=== PATIENT | male | born 1950 ===

== ENCOUNTER 2017-12-02 17:15 | Emergency (ER) | payer MEDICARE ==
[2017-12-02 17:44] VITALS: BP 178/97
[2017-12-02] MEDS ORDERED: MOTRIN PO ONE (21:56)
--- NOTE | 2017-12-02 22:01 | Emergency Department Report ---
ED General Adult HPI - General Chief complaint: Pain General Stated complaint: FALL Time Seen by Provider: 12/02/17 21:56 Source: patient Mode of arrival: Ambulatory Limitations: No Limitations - History of Present Illness Initial comments: 67-year-old male comes in stating he fell yesterday while walking to the bus stop. Patient state he has multiple complaints generalized pain. Patient ambulates with a cane. He has a history of glaucoma. 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 Patient reports he took ibuprofen. -: days(s) (1) - Related Data Previous Rx's Medication Instructions Recorded Last Taken Type Ibuprofen [Motrin 800 MG tab] 800 mg PO Q8HR #15 tablet 12/02/17 Unknown Rx Allergies Allergy/AdvReac Type Severity Reaction Status Date / Time No Known Allergies Allergy Unverified 12/02/17 17:44 ED Review of Systems ROS: Stated complaint: FALL Other details as noted in HPI ED Past Medical Hx - Past Medical History Additional medical history: Glaucoma - Surgical History Hx Cholecystectomy: Yes - Social History Smoking Status: Never Smoker Substance Use Type: Marijuana - Medications Home Medications: Home Medications Medication Instructions Recorded Confirmed Last Taken Type Ibuprofen [Motrin 800 MG tab] 800 mg PO Q8HR #15 tablet 12/02/17 Unknown Rx ED Physical Exam - General Limitations: No Limitations General appearance: alert, in no apparent distress - Head Head exam: Present: atraumatic, normocephalic - Eye Eye exam: Present: normal appearance - ENT ENT exam: Present: mucous membranes moist - Neck Neck exam: Present: normal inspection - Respiratory Respiratory exam: Present: normal lung sounds bilaterally. Absent: respiratory distress - Cardiovascular Cardiovascular Exam: Present: regular rate, normal rhythm. Absent: systolic murmur, diastolic murmur, rubs, gallop - Neurological Exam Neurological exam: Present: alert, oriented X3 - Psychiatric Psychiatric exam: Present: normal affect, normal mood - Skin Skin exam: Present: warm, dry, intact, normal color. Absent: rash ED Course Vital Signs 12/02/17 12/02/17 17:37 22:17 Temperature 98.0 F Pulse Rate 93 H Respiratory 16 18 Rate Blood Pressure 178/97 O2 Sat by Pulse 98 Oximetry ED Medical Decision Making - Medical Decision Making Patient has been evaluated by this provider fast track. Patient was given ibuprofen for pain management. Patient be discharged with ibuprofen and to follow up with primary care provider if symptoms persist or gets worse. Critical care attestation.: If time is entered above; I have spent that time in minutes in the direct care of this critically ill patient, excluding procedure time. ED Disposition Clinical Impression: Generalized pain Fall Qualifiers: Encounter type: initial encounter Qualified Code(s): W19.XXXA - Unspecified fall, initial encounter Glaucoma Qualifiers: Glaucoma type: unspecified Laterality: bilateral Qualified Code(s): H40.9 - Unspecified glaucoma Disposition: DC- TO HOME OR SELFCARE Is pt being admited?: No Does the pt Need Aspirin: No Condition: Stable Instructions: Non-pharmacological Pain Management Therapies for Children (ED), Pain Management in the Elderly (ED) Additional Instructions: Please take pain medication as prescribed. Follow-up with her primary care provider as well as your ophthalmologists. Prescriptions: Ibuprofen [Motrin 800 MG tab] 800 mg PO Q8HR #15 tablet Referrals: KHUSHI MASSEY MD [Staff Physician] - 3-5 Days PRIMARY CARE, [Primary Care Provider] - 3-5 Days [facility] [Provider Group] - 3-5 Days [facility] [Provider Group] - 3-5 Days
== END 2017-12-02 23:00 | disposition home or self-care (01) ==
LOC: ED 17:15
DX: M79.1 Myalgia (principal); H40.9 Unspecified glaucoma; F12.10 Cannabis abuse, uncomplicated; Z90.49 Acquired absence of other specified parts of digestive tract; W18.30XA Fall on same level, unspecified, initial encounter; Y93.89 Activity, other specified; Y92.89 Other specified places as the place of occurrence of the external cause; Y99.8 Other external cause status
CPT/HCPCS: 99282

== ENCOUNTER 2017-12-05 08:56 | Emergency (ER) | payer MEDICARE ==
--- NOTE | 2017-12-05 11:26 | Emergency Department Report ---
ED Fall HPI - General Chief Complaint: Back Pain/Injury Stated Complaint: BACK PAIN Time Seen by Provider: 12/05/17 11:18 Source: patient Mode of arrival: Ambulatory - History of Present Illness Initial Comments: Patient is 67-year-old male with no significant past medical history. Patient stated that he fell 3 days ago and landed on his back. Patient stated that he was tripped. Patient denied any loss of consciousness, head injury, neck injury or abdominal injury. Denied any weakness numbness or tingling sensation. Patient also denied any bowel or bladder incontinence. 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 Witnessed: no Place Fall Occurred: home Loss of Consciousness: none Prolonged Down Time?: no Symptoms Prior to Fall: none Location: back Severity scale (0 -10): 7 Context: tripped/slipped - Related Data Previous Rx's Medication Instructions Recorded Last Taken Type Ibuprofen [Motrin 800 MG tab] 800 mg PO Q8HR #15 tablet 12/02/17 Unknown Rx Allergies Allergy/AdvReac Type Severity Reaction Status Date / Time Sulfa (Sulfonamide Allergy Unknown Verified 12/05/17 09:06 Antibiotics) ED Review of Systems ROS: Stated complaint: BACK PAIN Other details as noted in HPI Comment: All other systems reviewed and negative Respiratory: denies: cough, orthopnea, shortness of breath Cardiovascular: denies: chest pain, palpitations Gastrointestinal: denies: abdominal pain, nausea, vomiting, diarrhea, constipation, hematemesis, hematochezia Genitourinary: denies: urgency, dysuria, frequency, hematuria, discharge Skin: denies: rash Neurological: denies: as per HPI, headache, weakness, numbness, paresthesias ED Past Medical Hx - Past Medical History Previous Medical History?: Yes Additional medical history: Glaucoma - Surgical History Past Surgical History?: Yes Hx Cholecystectomy: Yes - Social History Smoking Status: Never Smoker Substance Use Type: Marijuana - Medications Home Medications: Home Medications Medication Instructions Recorded Confirmed Last Taken Type Ibuprofen [Motrin 800 MG tab] 800 mg PO Q8HR #15 tablet 12/02/17 Unknown Rx ED Physical Exam - General Limitations: No Limitations General appearance: alert, in no apparent distress - Head Head exam: Present: atraumatic, normocephalic, normal inspection - ENT ENT exam: Present: normal exam, normal orophraynx, mucous membranes moist - Neck Neck exam: Present: normal inspection, full ROM. Absent: tenderness, meningismus, lymphadenopathy - Respiratory Respiratory exam: Present: normal lung sounds bilaterally. Absent: respiratory distress, wheezes, rales, rhonchi, chest wall tenderness, accessory muscle use, decreased breath sounds, prolonged expiratory - Cardiovascular Cardiovascular Exam: Present: regular rate, normal rhythm, normal heart sounds - GI/Abdominal GI/Abdominal exam: Present: soft, normal bowel sounds. Absent: distended, tenderness, guarding, rebound, rigid, organomegaly, mass, bruit, pulsatile mass - Extremities Exam Extremities exam: Present: normal inspection, full ROM, normal capillary refill - Back Exam Back exam: Present: full ROM, tenderness, vertebral tenderness. Absent: CVA tenderness (R), muscle spasm, paraspinal tenderness, rash noted - Neurological Exam Neurological exam: Present: alert, oriented X3, CN II-XII intact, normal gait, reflexes normal - Skin Skin exam: Present: warm, intact, normal color ED Course Vital Signs 12/05/17 09:04 Temperature 97.4 F L Pulse Rate 65 Respiratory 18 Rate Blood Pressure 136/88 O2 Sat by Pulse 98 Oximetry ED Medical Decision Making - Radiology Data Radiology results: report reviewed Referring Physician: KRYSTAL MULLIGAN Patient Name: MELLY RITTER Date of : 1950 Sex: Male Report Date: 2017-12-05 Report Status: Finalized Findings [facility] [address] [place] [address] XRay Report Signed Patient: MELLY RITTER MR#: [id number] : 1950 Acct:[id number] Age/Sex: 67 / M ADM Date: 12/05/17 Loc: ED Attending Dr: Ordering Physician: KRYSTAL MULLIGAN Date of Service: 12/05/17 Procedure(s): XR spine lumbosacral 2-3V Accession Number(s): [id number] cc: KRYSTAL MULLIGAN Fluoro Time In Minutes: LUMBOSACRAL SPINE, 3 VIEWS: History: Back injury Findings: There is normal height and alignment of the vertebral bodies. No compression deformity or subluxation. Moderate degenerative findings at L4-5. Severe degenerative findings at L5-S1. The sacrum and SI joints are grossly unremarkable. Impression: Degenerative findings as described. No acute injury is appreciated on x-ray. Transcribed By: TTR Dictated By: VARUN RADFORD JR, MD Electronically Authenticated By: VARUN RADFORD JR, MD Signed Date/Time: 12/05/17 115 DD/ 1154 TD/TT: 12/05/17 1155 Critical care attestation.: If time is entered above; I have spent that time in minutes in the direct care of this critically ill patient, excluding procedure time. ED Disposition Clinical Impression: Fall, Back pain Disposition: DC-01 TO HOME OR SELFCARE Is pt being admited?: No Condition: Stable Instructions: Low Back Strain (ED) Referrals: PRIMARY CARE, [Primary Care Provider] - 3-5 Days
--- NOTE | 2017-12-05 12:18 | XRay Report ---
LUMBOSACRAL SPINE, 3 VIEWS: History: Back injury Findings: There is normal height and alignment of the vertebral bodies. No compression deformity or subluxation. Moderate degenerative findings at L4-5. Severe degenerative findings at L5-S1. The sacrum and SI joints are grossly unremarkable. Impression: Degenerative findings as described. No acute injury is appreciated on x-ray.
[2017-12-05] MEDS ORDERED: TORADOL IM ONE (13:00)
[2017-12-05 13:20] VITALS: BP 136/72
== END 2017-12-05 13:19 | disposition home or self-care (01) ==
LOC: ED 08:56
DX: M54.9 Dorsalgia, unspecified (principal); F12.90 Cannabis use, unspecified, uncomplicated; Z90.49 Acquired absence of other specified parts of digestive tract; Z88.2 Allergy status to sulfonamides; W18.30XA Fall on same level, unspecified, initial encounter; Y93.89 Activity, other specified; Y99.8 Other external cause status; Y92.098 Other place in other non-institutional residence as the place of occurrence of the external cause
CPT/HCPCS: 72100; 96372; 99283; J1885

== ENCOUNTER 2017-12-22 17:05 | Emergency (ER) | payer MEDICARE ==
[2017-12-22 17:14] VITALS: BP 156/85
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
--- NOTE | 2017-12-22 21:09 | Emergency Department Report ---
ED Back Pain/Injury HPI - General Chief Complaint: Pain General Stated Complaint: FLU SYMPTOMS Time Seen by Provider: 12/22/17 21:04 Source: patient, family Limitations: No Limitations - History of Present Illness Initial Comments: This is a 67-year-old male here complaining of lower back pain on the left side. Patient said that he had fall injury in November 2017 and he still having soreness to his lower left back. He denies any loss of bowel or bladder movement. Denies any pain to midline. Denies any numbness or tingling to extremity. Patient said in November he slipped and had a ground-level fall and landed on the concrete. He was seen here in November 2017 and was treated for back pain and discharged home with ibuprofen and Zofran and tramadol. Patient was referred to orthopedic doctor and at first he said that he was not referred that in review of records show that he was referred and then patient said that he has glaucoma in each C so thus why he did not read the paper work. Pain is 10 out of 10 achy. Worse with movement and no alleviating factors. He states that he took [id number] pain medication without any relief. Patient was diagnosed with ground-level fall, cannabis use, dorsalis area, myalgia and 12/05 after he had his injury. Patient has a past medical problem of generalized pain and chronic back pain. He was also seen on 12/02/2017 for generalized pain and multiple other complaints and he was given multiple referrals. She did not follow-up. Patient was also seen by Dr. Mulligan in November and he ordered x-ray of lumbar spine which came back with normal finding except chronic degeneration. Complaint: back pain Onset/Timin -: days(s) (with fall injury but he has chronic back pain prior to that.) Similar Symptoms Previously: Yes Place: street Radiation: none Severity: moderate Severity scale (0 -10): 10 Quality: aching Consistency: constant Improves With: none Worsens With: movement, walking Context: fall (he has a history of chronic back pain and also he was here on December 05 for fall injury with back pain) Associated Symptoms: difficulty walking. denies: confusion, weakness, chest pain, numbness, cough, difficulty urinating, diaphoresis, constipation, headaches, abdominal pain, loss of appetite, malaise, nausea/vomiting, rash, seizure, shortness of breath, syncope Treatments Prior to Arrival: other (with the kind of pain medication which does not help) - Related Data Previous Rx's Medication Instructions Recorded Last Taken Type Ibuprofen [Motrin 800 MG tab] 800 mg PO Q8HR #15 tablet 12/02/17 Unknown Rx Naproxen [Naprosyn] 500 mg PO BID #14 tablet 12/05/17 Unknown Rx Ondansetron [Zofran Odt] 4 mg PO Q8HR PRN #14 tab.rapdis 12/05/17 Unknown Rx traMADol [Ultram 50 MG tab] 50 mg PO Q4HR PRN #14 tablet 12/05/17 Unknown Rx Cyclobenzaprine [Flexeril] 10 mg PO TID PRN #9 tablet 12/22/17 Unknown Rx Allergies Allergy/AdvReac Type Severity Reaction Status Date / Time Sulfa (Sulfonamide Allergy Unknown Verified 12/05/17 09:06 Antibiotics) ED Review of Systems ROS: Stated complaint: FLU SYMPTOMS Other details as noted in HPI Constitutional: denies: chills, fever Eyes: denies: eye pain, eye discharge ENT: denies: ear pain, throat pain, congestion Respiratory: denies: cough, shortness of breath, SOB with exertion, SOB at rest , stridor, wheezing Cardiovascular: denies: chest pain, palpitations, dyspnea on exertion, edema, syncope Endocrine: no symptoms reported Gastrointestinal: denies: abdominal pain, nausea, vomiting, diarrhea, constipation, hematemesis, melena, hematochezia Genitourinary: denies: urgency, dysuria, frequency, hematuria Musculoskeletal: back pain, myalgia. denies: joint swelling, arthralgia Skin: denies: rash, lesions Neurological: denies: headache, weakness, numbness, paresthesias, confusion, abnormal gait, vertigo ED Past Medical Hx - Past Medical History Medical history: glaucoma Glaucoma with decreased vision-sees shadows,optical nerve damage. Chronic back pain. Hypertension Surgical history: other (eye surgery for glaucoma) Psychiatric history: no pertinent history Family history: hypertension - Social History Smoking Status: Current Every Day Smoker Alcohol use: occasionally Drug use: marijuana ED Back Pain Physical Exam - Exam General: Vital signs noted. No distress. Alert and acting appropriately. ` This is a 67-year-old male who looks older than his stated age and not well. He is alert and oriented and responds appropriately. Back/Abdomen: No Abdominal Tenderness, No Perithoracic Tenderness, No Perilumbar Tenderness, No Sacroiliac Tenderness, No Flank Tenderness, No Straight Leg Raise Pain Neuro: Yes Normal Sensation (no motor or sensory deficits), Yes Normal DTR's ( reflexes are 2+), Yes Normal Gait (ambulates without any difficulties), No Motor Weakness (+ 5 strength in all extremities) ED Course Vital Signs 12/22/17 17:10 Temperature 98.0 F Pulse Rate 68 Respiratory 18 Rate Blood Pressure 156/85 O2 Sat by Pulse 99 Oximetry - Reevaluation(s) Reevaluation #1: 12/22/17 22:36 Flexeril 10 mg by mouth for left lower back pain which is chronic ED Medical Decision Making - Radiology Data Radiology results: report reviewed X-ray of lumbar sacral spine was done and was dictated by radiologist in November 2017. Report reviewed by myself and it shows degenerative findings but no acute injury status post fall. Patient: MELLY RITTER MR#: [id number] : 1950 Acct:[id number] Age/Sex: 67 / M ADM Date: 12/05/17 Loc: ED Attending Dr: Ordering Physician: KRYSTAL MULLIGAN Date of Service: 12/05/17 Procedure(s): XR spine lumbosacral 2-3V Accession Number(s): [id number] cc: KRYSTAL MULLIGAN Fluoro Time In Minutes: LUMBOSACRAL SPINE, 3 VIEWS: History: Back injury Findings: There is normal height and alignment of the vertebral bodies. No compression deformity or subluxation. Moderate degenerative findings at L4-5. Severe degenerative findings at L5-S1. The sacrum and SI joints are grossly unremarkable. Impression: Degenerative findings as described. No acute injury is appreciated on x-ray. Transcribed By: TTR Dictated By: VARUN RADFORD JR, MD Electronically Authenticated By: VARUN RADFORD JR, MD Signed Date/Time: 12/05/17 1155 DD/ 1154 TD/TT: 12/05/17 1155 - Medical Decision Making This is a 67-year-old male here reports that he is having left lower back pain which is worse and that he fell and injured his lower back in November 2017. He was seen here and treated for back pain. He had x-ray done and showed degenerative changes without any acute findings. Patient was also seen on December 02 by provider for generalized complaints and he was referred to multiple providers for follow-up which he did not. Patient initially said that he did not get any referrals but when I showed him the paperwork he said well he has glaucoma and could not read. Agents that he is having pain 10 on the 10 to his left lower back without any other symptoms. Patient was seen and examined by myself. Physical findings for normal exam to include neurologic: Back exam. He has no CVA tenderness and no neurological deficit. Patient able to ambulate. Abdominal exam is normal his lungs/Chest/ cardiac exam is normal. 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 I also told him that I review his records and he was seen here on December 02 in December 05 and the referred multiple providers for follow-up for his complaints. He has a history of cannabis use and also chronic back pain and I told patient is having an acute flareup of his chronic back pain. He did not seem to be very happy little reported. Patient was given Flexeril 10 mg by mouth for left lumbar strain and discharged home to follow up with orthopedic doctor. Patient does have access to primary care and I told him to follow-up with Dr. Kim Cerda was on-call and if he cannot get an appointment he can follow-up with [facility]. Assessment/plan Acute exacerbation of chronic lumbar back pain. X-ray 12/05/2017 showed degenerative disc disease without any acute findings. Left lumbar strain Patient given Flexeril 10 mg. Emergency room which relieved this pain. He will be discharged home on Flexeril. 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 His brother will be picking him up. Patient is not happy with choice of pain medication. I discussed with him that he has chronic pain and he needs to follow up with primary care to have them refer him to pain specialist to manage his chronic back pain. Patient discharged home in stable condition. Vital signs are stable he is afebrile. Discharged home to follow-up with primary care physician and also orthopedic doctor in 2-3 days. Prescription for Flexeril Critical care attestation.: If time is entered above; I have spent that time in minutes in the direct care of this critically ill patient, excluding procedure time. ED Disposition Clinical Impression: Acute exacerbation of chronic low back pain, Lumbar back pain Disposition: TO HOME OR SELFCARE Is pt being admited?: No Does the pt Need Aspirin: No Condition: Stable Instructions: Acute Low Back Pain (ED), Low Back Strain (ED), Core Strengthening Exercises (GEN), Chronic Back Pain (ED) Additional Instructions: Please follow up with Dr. Espinal who is the orthopedic doctor to manage her chronic back pain See primary care physician referral and call tomorrow to schedule appointment for multiple medical problems. Dr. Espinal was orthopedic doctor or your primary care physician can refer you to pain specialist to manage her chronic pain. Take Flexeril for back strain but please do not drive or operate heavy machinery while taking this medication as it causes drowsiness. See discharge instruction and core exercises to straining of back. Referrals: HEATH CERDA MD [Staff Physician] - 2-3 Days YEFRI ESPINAL MD [Staff Physician] - 2-3 Days [facility] [Outside] - 2-3 Days
[2017-12-22] MEDS ORDERED: FLEXERIL PO ONE (22:35)
== END 2017-12-22 22:50 | disposition home or self-care (01) ==
LOC: ED 17:05
DX: S39.012A Strain of muscle, fascia and tendon of lower back, initial encounter (principal); G89.29 Other chronic pain; I10 Essential (primary) hypertension; F17.200 Nicotine dependence, unspecified, uncomplicated; F12.10 Cannabis abuse, uncomplicated; Z88.2 Allergy status to sulfonamides; H40.9 Unspecified glaucoma; W01.0XXA Fall on same level from slipping, tripping and stumbling without subsequent striking against object, initial encounter; Y93.89 Activity, other specified; Y99.8 Other external cause status; Y92.410 Unspecified street and highway as the place of occurrence of the external cause
CPT/HCPCS: 99282